=== PATIENT | female | born 1960 | race Caucasian/White ===

== ENCOUNTER 2021-04-29 08:59 | Emergency (ER) | payer BC, SELFPAY ==
[2021-04-29 08:59] VITALS: BP 153/93; PULSE 81; RESP 18; TEMP 37; O2SAT 97; BMI 38.9
--- NOTE | 2021-04-29 09:46 | HMH.EDUTC ---
[facility] [place] Disposition Clinical Impression: Sinusitis Qualifiers: Sinusitis location: unspecified location Chronicity: unspecified Qualified Code(s): J32.9 - Chronic sinusitis, unspecified Disposition: Home, Self-Care Condition on Discharge: Good Instructions: Sinusitis, DI for Sinusitis Additional Instructions: *Monitor Temp, Over the counter Motrin or Tylenol as directed/as needed Tylenol every 4 hours and Motrin every 6 hours (as long as your family doctor has told you that you can take it) for fever or pain. and straight to ER if unable to lower temp less than 101.0 after medication given *Warm salt water gargles may help to soothe the throat *Throat Lozenges *Warm fluids like tea with honey may help to soothe the throat *Sleep elevated *Humidifier/Vaporizer Follow up IMMEDIATELY for new or worsening symptoms or no Noticeable improvement over the next 48-72 hours. 911 for difficulty breathing or swallowing You were tested for today for COVID19 your test result should be back in the next 24-48 hours, you may check your results on the [facility] My Health Portal if you have trouble logging on you may call You was given a handout with instructions for Self Quarantine and Self isolation for while you wait on test results and what to do if they are positive If you are positive the Health Dept will be contacting you also Make sure to take your Vitamins Vit. C Vit D and Zinc if you can take them Prescriptions: Benzonatate [Benzonatate 100mg cap] 100 mg PO TID PRN #30 cap PRN Reason: Cough Transmission Status: Pending to [facility] predniSONE [Prednisone 20mg Tab] 20 mg PO BID 5 Days #10 tab Transmission Status: Pending to [facility] Azithromycin [Z-Edward 250mg Tab*] 250 mg PO UD DOSE PK #6 tab Transmission Status: Pending to [facility] Referrals: Provider,Referral, [Primary Care Provider] - Medical Decision Making - Kiel Inquiry Pt receiving controlled substance: No Kiel was queried for this patient: No Vital Signs: 04/29/21 08:59 Temperature 98.6 F Temperature Source Oral Pulse Rate [Left Radial] 81 Respiratory Rate 18 Blood Pressure [Right Arm] 153/93 H Blood Pressure Mean [Right Arm] 113 Blood Pressure Source [Right Arm] Automatic Cuff Blood Pressure Position [Right Arm] Sitting 02 Sat by Pulse Oximetry 97 Oxygen Delivery Method Room Air Orders (Tests/Meds): ORDERS Category Date Time Status Covid-19 Nasal PCR ([facility]) Routine Lab 04/29/21 09:24 Ordered Medical Decision Narrative: Patient state that she has taken azithromycin and prednisone [facility] [place] HPI - General Stated complaint: sore throat, sinus pressure Time Seen by Provider: 04/29/21 09:05 Mode of Arrival: Ambulatory Source of Information: Patient Limitations: No Limitations Description of Symptoms (Recalled from Triage Doc. by RN): c/o congestion, sinus pressure and severe cough since Wednesday HEENT Symptoms (Recalled from RN notes): Yes Resp Symptoms (Recalled from RN notes): No Skin Symptoms (Recalled from RN notes): No MS Symptoms (Recalled from RN notes): No Functional Status (Recalled from RN notes): na - History of Present Illness Provider Complaint: Patient states that she has been having sinus congestion and pressure for well over week that has not improved States that when she tries to lay down at night she can feel the drianage in the back of her throat and makes her cough States that it has continued and not cleared with OTC medication so she came in - Related Data Home Medications Medication Instructions Recorded Confirmed Levothyroxine Sodium [Synthroid 150 mcg PO DAILY 03/15/18 03/15/18 150mcg (0.15mg) tablet] Triamterene/Hydrochlorothiazid 1 each PO DAILY 03/15/18 03/15/18 [Triamterene-Hctz 50-25 mg Cap] Previous Rx's Medication Instructions Recorded Azithromycin [Z-Edward 250mg Tab*] 250 mg PO UD DOSE PK #6 tab 04/29/21 Benzonatate [Benzonatate 100mg 100 mg PO
[2021-04-29 10:04] VITALS: BP 153/93; PULSE 81; RESP 18; TEMP 37; O2SAT 97
== END 2021-04-29 10:05 | disposition home or self-care (01) ==
PROVIDERS: Emergency Provider Nurse Practitioner
DX: J32.9 Chronic sinusitis, unspecified (principal); Z20.822 Contact with and (suspected) exposure to COVID-19; I10 Essential (primary) hypertension; Z88.0 Allergy status to penicillin; Z79.899 Other long term (current) drug therapy
CPT/HCPCS: 99202; C9803; G0463; U0003; U0005

== ENCOUNTER 2021-08-08 09:00 | Emergency (ER) | payer BC, SELFPAY ==
[2021-08-08 09:00] VITALS: BP 113/68; PULSE 84; RESP 16; TEMP 36.8; O2SAT 97; BMI 39.3
--- NOTE | 2021-08-08 09:30 | HMH.EDUTC ---
[facility] [place] Disposition Clinical Impression: Bronchitis Sinusitis Qualifiers: Sinusitis location: other Chronicity: unspecified Qualified Code(s): J32.9 - Chronic sinusitis, unspecified Disposition: Home, Self-Care Condition on Discharge: Good Instructions: Sinusitis, Acute Bronchitis, DI for Sinusitis Additional Instructions: ? Start antibiotic today. Be sure to complete entire prescription even if feeling better ? Monitor temp. Tylenol every 4 hours as needed and / or ibuprofen every 6 hours as needed ( As long as your primary care physician has told you that it ok to take both. For fever/aches/pains ER if no less than 101 despite Tylenol or Motrin ? Humidifier/vaporizer or hot steamy shower *Tessalon Perles will not cause drowsiness but use at bedtime to help stop cough so that you may get some rest. *Start steroid today. Helps with inflammation therefore, cough and wheezing. Follow directions on the package. Reviewed side effects. Patient reports taking them before. Follow up IMMEDIATELY for new or worsening of symptoms OR no noticeable improvement over the next 48-72 hours. 911 immediately for any life threatening symptoms such as chest pain or difficulty breathing Prescriptions: Benzonatate [Benzonatate 100mg cap] 100 mg PO Q8HP PRN #15 cap PRN Reason: Cough Transmission Status: [facility] predniSONE [Prednisone 20mg Tab] 20 mg PO BID 5 Days #10 tab Transmission Status: [facility] Azithromycin [Z-Edward 250mg Tab] 250 mg PO DIRECTED #6 tab Transmission Status: Pending to [facility] Referrals: Provider,Referral, [Primary Care Provider] - As needed Time of Disposition: 09:40 Medical Decision Making - Kiel Inquiry Pt receiving controlled substance: No Kiel was queried for this patient: No Vital Signs: 08/08/21 09:00 Temperature 98.2 F Temperature Source Oral Pulse Rate [Right Brachial] 84 Respiratory Rate 16 Blood Pressure [Right Arm] 113/68 Blood Pressure Mean [Right Arm] 83 Blood Pressure Source [Right Arm] Automatic Cuff Blood Pressure Position [Right Arm] Sitting 02 Sat by Pulse Oximetry 97 Oxygen Delivery Method Room Air [facility] [place] HPI - General Stated complaint: chest congestion Time Seen by Provider: 08/08/21 09:30 Mode of Arrival: Ambulatory Source of Information: Patient Limitations: No Limitations Description of Symptoms (Recalled from Triage Doc. by RN): PATIENT C/O CONGESTION, SORE THROAT, AND PRODUCTIVE COUGH WITH GREEN SPUTUM X 3 DAYS HEENT Symptoms (Recalled from RN notes): Yes Resp Symptoms (Recalled from RN notes): Yes Skin Symptoms (Recalled from RN notes): No MS Symptoms (Recalled from RN notes): No Functional Status (Recalled from RN notes): WNL - History of Present Illness Provider Complaint: Pateint states that she she has been having sinus pain and pressure for well over a week now States that she feels like it is trying to move into her chest area States that she is having drianage in the back of her throat and at times she is able to cough up some greenish colored mucous State that she wanted to come in and get checked before it moved into her lungs - Related Data Home Medications Medication Instructions Recorded Confirmed Levothyroxine Sodium [Synthroid 150 mcg PO DAILY 03/15/18 08/08/21 150mcg (0.15mg) tablet] Triamterene/Hydrochlorothiazid 1 each PO DAILY 03/15/18 08/08/21 [Triamterene-Hctz 50-25 mg Cap] Previous Rx's Medication Instructions Recorded Azithromycin [Z-Edward 250mg Tab] 250 mg PO DIRECTED #6 tab 08/08/21 Benzonatate [Benzonatate 100mg 100 mg PO Q8HP PRN #15 cap 08/08/21 cap] predniSONE [Prednisone 20mg 20 mg PO BID 5 Days #10 tab 08/08/21 Tab] Allergies Allergy/AdvReac Type Severity Reaction Status Date / Time Penicillins Allergy Verified 03/15/18 18:57 - Worker's Comp Is this a Worker's Comp case?: No [facility] History - Hepatitis A Screen
[2021-08-08 09:44] VITALS: BP 113/68; PULSE 84; RESP 16; TEMP 36.8; O2SAT 97
== END 2021-08-08 09:50 | disposition home or self-care (01) ==
PROVIDERS: Emergency Provider Nurse Practitioner
DX: J20.9 Acute bronchitis, unspecified (principal); J32.9 Chronic sinusitis, unspecified; I10 Essential (primary) hypertension; Z88.0 Allergy status to penicillin
CPT/HCPCS: 99203; G0463

== ENCOUNTER 2022-01-19 10:01 | Emergency (ER) | payer BC, SELFPAY ==
[2022-01-19 10:15] VITALS: BP 131/76; PULSE 81; RESP 21; TEMP 36.7; O2SAT 97; BMI 37.2
--- NOTE | 2022-01-19 10:31 | HMH.EDUTC ---
[facility] [place] Disposition Clinical Impression: Sinusitis Qualifiers: Sinusitis location: unspecified location Chronicity: unspecified Qualified Code(s): J32.9 - Chronic sinusitis, unspecified Disposition: Home, Self-Care Condition on Discharge: Good Instructions: Sinusitis, DI for Sinusitis Additional Instructions: *Monitor Temp, Over the counter Motrin or Tylenol as directed/as needed Tylenol every 4 hours and Motrin every 6 hours (as long as your family doctor has told you that you can take it) for fever or pain. and straight to ER if unable to lower temp less than 101.0 after medication given *Warm salt water gargles may help to soothe the throat *Throat Lozenges *Warm fluids like tea with honey may help to soothe the throat *Sleep elevated *Humidifier/Vaporizer Take medication as prescribed Follow up IMMEDIATELY for new or worsening symptoms or no Noticeable improvement over the next 48-72 hours. 911 for difficulty breathing or swallowing Prescriptions: Benzonatate [Benzonatate 100mg cap] 100 mg PO Q8HP PRN #30 cap PRN Reason: Cough Transmission Status: [facility] predniSONE [Prednisone 20mg Tab] 20 mg PO BID #10 tab [facility]: [facility] Azithromycin [Z-Edward 250mg Tab] 250 mg PO DIRECTED #6 tab Transmission Status: Pending to [facility] Referrals: Sallie Bahena [Primary Care Provider] - As needed Time of Disposition: 10:42 Medical Decision Making - Kiel Inquiry Pt receiving controlled substance: No Kiel was queried for this patient: No Vital Signs: 01/19/22 10:15 Temperature 98.1 F Temperature Source Oral Pulse Rate [Right Brachial] 81 Respiratory Rate 21 Blood Pressure [Right Arm] 131/76 Blood Pressure Mean [Right Arm] 94 Blood Pressure Source [Right Arm] Automatic Cuff Blood Pressure Position [Right Arm] Sitting 02 Sat by Pulse Oximetry 97 Oxygen Delivery Method Room Air Medical Decision Narrative: Patient states that she has taken azithromycin and Prednisone in the past without complications or reactions [facility] [place] HPI - General Stated complaint: head congestion Time Seen by Provider: 01/19/22 10:31 Mode of Arrival: Ambulatory Source of Information: Patient Limitations: No Limitations Description of Symptoms (Recalled from Triage Doc. by RN): PATIENT C/O PRODUCTIVE COUGH AND CHEST/HEAD CONGESTION X 4 DAYS HEENT Symptoms (Recalled from RN notes): Yes Resp Symptoms (Recalled from RN notes): Yes Skin Symptoms (Recalled from RN notes): No MS Symptoms (Recalled from RN notes): No Functional Status (Recalled from RN notes): WNL - History of Present Illness Provider Complaint: Patient states that she has been having sinus congestion and pressure and feels like it is trying to move into her chest at time she is coughing up some green mucous States that she wanted to come in and get checked before she ended up with Pneumonia - Related Data Home Medications Medication Instructions Recorded Confirmed Levothyroxine Sodium [Synthroid 150 mcg PO DAILY 01/19/22 01/19/22 150mcg (0.15mg) tablet] Previous Rx's Medication Instructions Recorded Azithromycin [Z-Edward 250mg Tab] 250 mg PO DIRECTED #6 tab 01/19/22 Benzonatate [Benzonatate 100mg 100 mg PO Q8HP PRN #30 cap 01/19/22 cap] predniSONE [Prednisone 20mg 20 mg PO BID #10 tab 01/19/22 Tab] Allergies Allergy/AdvReac Type Severity Reaction Status Date / Time Penicillins Allergy Verified 03/15/18 18:57 - Worker's Comp Is this a Worker's Comp case?: No [facility] History - Hepatitis A Screen Attestation statement:: This patient has been screened for Hepatitis A risk factors. I have reviewed the patient's past medical history: Yes Medical History: Reports:: Cancer (SKIN), Hypertension, Migraine Other Medical History: Reports: Thyroid Disease Laterality Cases: Bilateral: Tonsillectomy Other Surgeries: Yes: Cholecystectomy
[2022-01-19 10:51] VITALS: BP 131/76; PULSE 81; RESP 21; TEMP 36.7; O2SAT 97
== END 2022-01-19 10:53 | disposition home or self-care (01) ==
PROVIDERS: Emergency Provider Nurse Practitioner; PCP Internal Medicine
DX: J32.9 Chronic sinusitis, unspecified (principal)
CPT/HCPCS: 99212; G0463

== ENCOUNTER 2022-03-25 08:00 | Emergency (ER) | payer BC, SELFPAY ==
[2022-03-25 08:13] VITALS: BP 138/71; PULSE 82; RESP 17; TEMP 37.3; O2SAT 98; BMI 37.8
--- NOTE | 2022-03-25 08:25 | EXP.UTC ---
Discharge Plan Disposition Patient Disposition: Home, Self-Care Condition: Good Prescriptions Prescriptions: New sulfamethoxazole-trimethoprim [Bactrim DS] 800-160 mg tablet 1 tab PO BID 7 Days Qty: 14 0RF phenazopyridine [Pyridium] 200 mg tablet 200 mg PO Q8H 2 Days Qty: 6 0RF No Action levothyroxine 150 MCG tablet 150 mcg PO DAILY triamterene-hydrochlorothiazid 37.5-25 mg tablet 1 tab PO DAILY Referrals Follow up/Referrals: Sallie Bahena [Primary Care Provider] - See instructions Activity Restrictions/Add. Instructions Additional Instructions/Restrictions: *Increase fluids. Water not Soda or Tea *Start antibiotic immediately and be sure to take as ordered for the FULL length of time although you should start to see improvement over the next 48 hours *Pyridium as needed Remember this medication will turn your urine . This is normal but it will stain what ever it gets on *You should not use Pyridium for more than 48 hours. If so , follow up with your primary physician to review urine culture and ensure that antibiotic is adequate for infection *Be SURE to follow up anytime for new or worsening symptoms with your family doctor. AND in 48 hours for urine culture results with your family doctor, if you do not have a doctor then you may call back to the [facility] for urine culture results and further treatment. We do recommend that you choose and establish care with a Primary Care Physician. ?AND follow up with them ?in 10-14 days to repeat UA to ensure infection is resolved and blood no longer present *Be sure to let your PCP know that we sent urine cultures from the [facility] so they can follow up to ensure that you area the on the correct antibiotic Call your doctor office and make appointment for 48 hours (2 days from today) ?to follow up and get the results of your urine culture and further treatment Clinical Impressions Clinical Impression: UTI (urinary tract infection) Instructions Patient Instructions: DI for Urinary Tract Infection (UTI), Urinary Tract Infection, Trimethoprim/Sulfamethoxazole (Alternative Therapy) Discharge ED Provider: Carolyn Vanessa [facility] [place] HPI General Stated complaint: Possible UTI Mode of Arrival: Ambulatory Source of Information: Patient Limitations: No Limitations Time Seen by Provider: 03/25/22 08:26 Description of Symptoms (Recalled from Triage Doc. by RN): pt comes in with c/o urgency, frequency and pressure with urination. symptoms began yesterday. pt states that 03/21, she had issue with high bp, she believes she may have been getting sick then. HEENT Symptoms (Recalled from RN notes): No Resp Symptoms (Recalled from RN notes): No Skin Symptoms (Recalled from RN notes): No MS Symptoms (Recalled from RN notes): No Functional Status (Recalled from RN notes): n/a History of Present Illness Provider Complaint: Patient states that yesterday she started having burning with urination and feeling of urgency and frequency States that she had a left over pyridium so she took it but still having symptoms and she is pretty sure she has a UTI so she came in to get it checked out Related Data Home Medications Medication Instructions Recorded Confirmed levothyroxine 150 mcg tablet 150 mcg PO DAILY THYROID 01/19/22 03/25/22 triamterene 37.5 1 tab PO DAILY High blood pressure 03/25/22 03/25/22 mg-hydrochlorothiazide 25 mg tablet Previous Rx's Medication Instructions Recorded phenazopyridine 200 mg tablet 200 mg PO Q8H pain 2 days #6 tabs 03/25/22 (Pyridium) sulfamethoxazole 800 1 tab PO BID 7 days #14 tabs 03/25/22 mg-trimethoprim 160 mg tablet (Bactrim DS) Allergies Allergy/AdvReac Type Severity Reaction Status Date / Time Penicillins Allergy Verified 03/25/22 08:16 Worker's Comp Is this a Worker's Comp case?: No PFSH PFSH Social History Smoking Status: Unknown if ever smoked alcohol intake: never halle
[2022-03-25 08:29] LABS: Apearance,Urine Cloudy (Clear); Color,Urine Red (Yellow)
[2022-03-25 08:30] LABS: Bilirubin,Urine 2+ (Negative); Blood, Urine 3+ (Negative); Glucose,Urine (UA) 250 (Negative); Ketones,Urine 15 (Negative); Protein,Urine 2+ (Negative); UTC Leukocyte Esterase,Urine 3+ (Negative); Urobilinogen,Urine >=8 EU/dl (0.2)
[2022-03-25 08:31] LABS: UTC Nitrate,Urine Positive (Negative)
[2022-03-25 08:41] VITALS: BP 138/71; PULSE 82; RESP 17; TEMP 37.3
== END 2022-03-25 08:50 | disposition home or self-care (01) ==
PROVIDERS: Emergency Provider Nurse Practitioner; PCP Internal Medicine
DX: N39.0 Urinary tract infection, site not specified (principal); I10 Essential (primary) hypertension; E03.9 Hypothyroidism, unspecified; Z79.899 Other long term (current) drug therapy; Z88.0 Allergy status to penicillin
CPT/HCPCS: 81003; 87086; 87088; 87186; 99213; G0463

== ENCOUNTER 2022-07-06 07:59 | Emergency (ER) | payer BC, SELFPAY ==
[2022-07-06 08:10] VITALS: BP 134/73; PULSE 80; RESP 23; TEMP 36.7; O2SAT 96; BMI 37.9
--- NOTE | 2022-07-06 08:24 | EXP.UTC ---
Discharge Plan Disposition Patient Disposition: Home, Self-Care Condition: Good Prescriptions Prescriptions: New benzonatate 100 mg capsule 100 mg PO TID PRN (Reason: cough) Qty: 30 0RF albuterol sulfate [Proventil HFA] 90 mcg/actuation HFA aerosol inhaler 1 inh inhalation Q6H PRN (Reason: shortness of breath or wheezing) Qty: 8.5 0RF prednisone [prednisone] 20 mg tablet 20 mg PO BID 5 Days Qty: 10 0RF azithromycin [Zithromax Z-Edward] 250 mg tablet See Rx Instructions .ROUTE .COMPLEX 5 Days Qty: 6 0RF Rx Instructions: For 250 mg dose pack: take 500 mg today (day 1), then 250 mg for 4 days (days 2-5) No Action levothyroxine 150 MCG tablet 150 mcg PO DAILY triamterene-hydrochlorothiazid 37.5-25 mg tablet 1 tab PO DAILY sulfamethoxazole-trimethoprim [Bactrim DS] 800-160 mg tablet 1 tab PO BID 7 Days Qty: 14 0RF phenazopyridine [Pyridium] 200 mg tablet 200 mg PO Q8H 2 Days Qty: 6 0RF Referrals Follow up/Referrals: Provider,Referral, MD [Primary Care Provider] - See instructions Activity Restrictions/Add. Instructions Additional Instructions/Restrictions: Start antibiotic today. Be sure to complete entire prescription even if feeling better Monitor temp. Tylenol every 4 hours as needed and / or ibuprofen every 6 hours as needed ( As long as your primary care physician has told you that it ok to take both. For fever/aches/pains ER if no less than 101 despite Tylenol or Motrin Humidifier/vaporizer or hot steamy shower Inhaler every 4-6 hours as needed like we discussed. If unsure how to use it, ask pharmacist to demonstrate how. Should help open airways and improve cough, wheezing, and shortness of breath *Tessalon Perles will not cause drowsiness but use at bedtime to help stop cough so that you may get some rest. *Start steroid today. Helps with inflammation therefore, cough and wheezing. Follow directions on the package. Reviewed side effects. Patient reports taking them before. Follow up IMMEDIATELY for new or worsening of symptoms OR no noticeable improvement over the next 48-72 hours. 911 immediately for any life threatening symptoms such as chest pain or difficulty breathing Clinical Impressions Clinical Impression: Sinusitis Instructions Patient Instructions: Sinusitis, DI for Sinusitis Discharge ED Provider: Carolyn Vanessa [facility] [place] General Stated complaint: Cough Mode of Arrival: Ambulatory Source of Information: Patient Limitations: No Limitations Time Seen by Provider: 07/06/22 08:24 Description of Symptoms (Recalled from Triage Doc. by RN): PATIENT C/O DRY COUGH, CONGESTION, AND WHEEZING ON EXPIRATION SINCE WEDNESDAY NIGHT HEENT Symptoms (Recalled from RN notes): Yes Resp Symptoms (Recalled from RN notes): Yes Skin Symptoms (Recalled from RN notes): No MS Symptoms (Recalled from RN notes): No Functional Status (Recalled from RN notes): WNL History of Present Illness Provider Complaint: Patient states that she has been having dry cough, sinus congestion and pressure, wheezing on and off with expiration worse when she lays down States that she isnt coughing anything up but feels like it does when she is getting bronchitis States that cough and wheezing like feeling worse when she lays down Related Data Home Medications Medication Instructions Recorded Confirmed levothyroxine 150 mcg tablet 150 mcg PO DAILY THYROID 01/19/22 03/25/22 triamterene 37.5 1 tab PO DAILY High blood pressure 03/25/22 03/25/22 mg-hydrochlorothiazide 25 mg tablet Previous Rx's Medication Instructions Recorded phenazopyridine 200 mg tablet 200 mg PO Q8H pain 2 days #6 tabs 03/25/22 (Pyridium) sulfamethoxazole 800 1 tab PO BID 7 days #14 tabs 03/25/22 mg-trimethoprim 160 mg tablet (Bactrim DS) albuterol sulfate 90 mcg/actuation 1 inh inhalation Q6H PRN shortness 07/06/22 aerosol inhaler (Proventil HFA) of breath or wheezing
[2022-07-06 08:37] VITALS: BP 134/73; PULSE 80; RESP 23; TEMP 36.7; O2SAT 96
== END 2022-07-06 08:40 | disposition home or self-care (01) ==
PROVIDERS: Emergency Provider Nurse Practitioner
DX: J32.9 Chronic sinusitis, unspecified (principal)
CPT/HCPCS: 99212; G0463

== ENCOUNTER 2022-10-26 08:00 | Emergency (ER) | payer BC, SELFPAY ==
[2022-10-26 08:05] VITALS: BP 142/80; PULSE 79; RESP 21; TEMP 37.1; O2SAT 95; BMI 36.9
--- NOTE | 2022-10-26 08:25 | EXP.UTC ---
Discharge Plan Disposition Patient Disposition: Home, Self-Care Condition: Good Prescriptions Prescriptions: New benzonatate 100 mg capsule 100 mg PO TID PRN (Reason: cough) Qty: 30 1RF prednisone [prednisone] 20 mg tablet 20 mg PO BID 5 Days Qty: 10 0RF azithromycin [Zithromax Z-Edward] 250 mg tablet See Rx Instructions .ROUTE .COMPLEX 5 Days Qty: 6 0RF Rx Instructions: For 250 mg dose pack: take 500 mg today (day 1), then 250 mg for 4 days (days 2-5) albuterol sulfate [Proventil HFA] 90 mcg/actuation HFA aerosol inhaler 1 - 2 inh inhalation Q6H PRN (Reason: shortness of breath or wheezing) Qty: 8.5 0RF fluticasone propionate [Flonase Allergy Relief] 50 mcg/actuation spray,suspension 1 - 2 spray intranasal DAILY Qty: 16 0RF Rx Instructions: administer into each nostril No Action levothyroxine [Synthroid] 150 mcg tablet 150 mcg PO DAILY cholecalciferol (vitamin D3) [Vitamin D3] 125 mcg (5,000 unit) Tablet 125 mcg PO DAILY triamterene-hydrochlorothiazid 37.5-25 mg tablet 1 tab PO DAILY Referrals Follow up/Referrals: Provider,Referral, MD [Primary Care Provider] - See instructions Activity Restrictions/Add. Instructions Additional Instructions/Restrictions: Start antibiotic today. Be sure to complete entire prescription even if feeling better Monitor temp. Tylenol every 4 hours as needed and / or ibuprofen every 6 hours as needed ( As long as your primary care physician has told you that it ok to take both. For fever/aches/pains ER if no less than 101 despite Tylenol or Motrin Humidifier/vaporizer or hot steamy shower Inhaler every 4-6 hours as needed like we discussed. If unsure how to use it, ask pharmacist to demonstrate how. Should help open airways and improve cough, wheezing, and shortness of breath *Tessalon Perles will not cause drowsiness but use at bedtime to help stop cough so that you may get some rest. *Start steroid today. Helps with inflammation therefore, cough and wheezing. Follow directions on the package. Reviewed side effects. Patient reports taking them before. Follow up IMMEDIATELY for new or worsening of symptoms OR no noticeable improvement over the next 48-72 hours. 911 immediately for any life threatening symptoms such as chest pain or difficulty breathing Clinical Impressions Clinical Impression: Sinusitis, Bronchitis Instructions Patient Instructions: Sinusitis, Acute Bronchitis, DI for Sinusitis, Sinus Headache Discharge ED Provider: Carolyn Vanessa [facility] [place] General Stated complaint: Congestion, Cough Mode of Arrival: Ambulatory Source of Information: Patient Limitations: No Limitations Time Seen by Provider: 10/26/22 08:25 Description of Symptoms (Recalled from Triage Doc. by RN): PATIENT C/O PRODUCTIVE COUGH THAT IS WORSE AT NIGHT, SINUS DRAINAGE, AND CONGESTION THAT STARTED WEDNESDAY HEENT Symptoms (Recalled from RN notes): Yes Resp Symptoms (Recalled from RN notes): Yes Skin Symptoms (Recalled from RN notes): No MS Symptoms (Recalled from RN notes): No Functional Status (Recalled from RN notes): WNL History of Present Illness Provider Complaint: Patient states that she has been having sinus pain and pressure, drainage in the back of her throat and at times she is able to cough up some mucous States that it was getting worse and kept her up most of the night last night so this morning she came in to get checked Related Data Home Medications Medication Instructions Recorded Confirmed triamterene 37.5 1 tab PO DAILY Hypertension 03/25/22 10/26/22 mg-hydrochlorothiazide 25 mg tablet cholecalciferol (vitamin D3) 125 125 mcg PO DAILY Supplement 10/26/22 10/26/22 mcg (5,000 unit) tablet (Vitamin D3) levothyroxine 150 mcg tablet 150 mcg PO DAILY THYROID 10/26/22 10/26/22 (Synthroid) Previous Rx's Medication Instructions Recorded albuterol sulfate 9
[2022-10-26 08:36] VITALS: BP 142/80; PULSE 79; RESP 21; TEMP 37.1; O2SAT 95
== END 2022-10-26 08:38 | disposition home or self-care (01) ==
PROVIDERS: Emergency Provider Nurse Practitioner
DX: J20.9 Acute bronchitis, unspecified (principal); J01.90 Acute sinusitis, unspecified; R51.9 Headache, unspecified; I10 Essential (primary) hypertension; E07.9 Disorder of thyroid, unspecified
CPT/HCPCS: 99212; 99214; G0463

== ENCOUNTER 2022-11-01 08:00 | Emergency (ER) | payer BC, SELFPAY ==
[2022-11-01 08:05] VITALS: BP 133/78; PULSE 79; RESP 18; TEMP 36.8; O2SAT 98; BMI 37.7
--- NOTE | 2022-11-01 08:22 | EXP.UTC ---
Discharge Plan Disposition Patient Disposition: Home, Self-Care Condition: Good Prescriptions Prescriptions: New levofloxacin 750 mg tablet 750 mg PO DAILY 7 Days Qty: 7 0RF Rx Instructions: separate from oral iron by at least 4 hours guaifenesin [Mucinex] 600 mg tablet extended release 12hr 1,200 mg PO BID PRN (Reason: cough) Qty: 20 0RF No Action levothyroxine [Synthroid] 150 mcg tablet 150 mcg PO DAILY cholecalciferol (vitamin D3) [Vitamin D3] 125 mcg (5,000 unit) Tablet 125 mcg PO DAILY benzonatate 100 mg capsule 100 mg PO TID PRN (Reason: cough) Qty: 30 1RF prednisone [prednisone] 20 mg tablet 20 mg PO BID 5 Days Qty: 10 0RF azithromycin [Zithromax Z-Edward] 250 mg tablet See Rx Instructions .ROUTE .COMPLEX 5 Days Qty: 6 0RF Rx Instructions: For 250 mg dose pack: take 500 mg today (day 1), then 250 mg for 4 days (days 2-5) albuterol sulfate [Proventil HFA] 90 mcg/actuation HFA aerosol inhaler 1 - 2 inh inhalation Q6H PRN (Reason: shortness of breath or wheezing) Qty: 8.5 0RF fluticasone propionate [Flonase Allergy Relief] 50 mcg/actuation spray,suspension 1 - 2 spray intranasal DAILY Qty: 16 0RF Rx Instructions: administer into each nostril triamterene-hydrochlorothiazid 37.5-25 mg tablet 1 tab PO DAILY Referrals Follow up/Referrals: Sallie Bahena [Primary Care Provider] - See instructions Activity Restrictions/Add. Instructions Additional Instructions/Restrictions: Make sure to seperate oral Iron and Levaquin by at least 4 hours Start antibiotic today. Be sure to complete entire prescription even if feeling better Monitor temp. Tylenol every 4 hours as needed and / or ibuprofen every 6 hours as needed ( As long as your primary care physician has told you that it ok to take both. For fever/aches/pains ER if no less than 101 despite Tylenol or Motrin Humidifier/vaporizer or hot steamy shower Inhaler every 4-6 hours as needed like we discussed. If unsure how to use it, ask pharmacist to demonstrate how. Should help open airways and improve cough, wheezing, and shortness of breath Mucinex during the day for your cough and cough suppressant only at night. Be sure to drink lots of water. Follow up IMMEDIATELY for new or worsening of symptoms OR no noticeable improvement over the next 48-72 hours. 911 immediately for any life threatening symptoms such as chest pain or difficulty breathing Clinical Impressions Clinical Impression: Bronchitis Sinusitis Qualifiers: Sinusitis location: unspecified location Chronicity: unspecified Qualified Code(s): J32.9 - Chronic sinusitis, unspecified Instructions Patient Instructions: Acute Bronchitis, DI for Sinusitis Discharge ED Provider: Carolyn Vanessa [facility] [place] HPI General Stated complaint: Congestion cough headache Mode of Arrival: Ambulatory Source of Information: Patient Limitations: No Limitations Time Seen by Provider: 11/01/22 08:26 Description of Symptoms (Recalled from Triage Doc. by RN): PATIENT C/O CONGESTION AND PRODUCTIVE COUGH X 1 WEEK HEENT Symptoms (Recalled from RN notes): No Resp Symptoms (Recalled from RN notes): Yes Skin Symptoms (Recalled from RN notes): No MS Symptoms (Recalled from RN notes): No Functional Status (Recalled from RN notes): WNL History of Present Illness Provider Complaint: Patient states that she started last week with sinus congestion and pressure and finished her antibiotics on Wednesday and it came back and was worse States that she is coughing up dark yellow mucous and same is coming from her nose States that she has been using her albuterol but hasnt helped much and not able to cough much up Related Data Home Medications Medication Instructions Recorded Confirmed triamterene 37.5 1 tab PO DAILY Hypertension 03/25/22 10/26/22 mg-hydrochlorothiazide 25 mg tablet cholecalciferol (vitamin D3) 125 125 mcg PO
[2022-11-01 08:23] VITALS: BP 133/78; PULSE 79; RESP 18; TEMP 36.8; O2SAT 98
== END 2022-11-01 09:00 | disposition home or self-care (01) ==
PROVIDERS: Emergency Provider Nurse Practitioner; PCP Internal Medicine
DX: J20.9 Acute bronchitis, unspecified (principal); J01.90 Acute sinusitis, unspecified; I10 Essential (primary) hypertension; E03.9 Hypothyroidism, unspecified
CPT/HCPCS: 96372; 99212; 99214; G0463

== ENCOUNTER 2023-08-28 08:13 | Emergency (ER) | payer MEDICARE, BC, SELFPAY ==
[2023-08-28 09:00] VITALS: BP 106/80; PULSE 72; RESP 18; TEMP 36.8; O2SAT 95; BMI 35.6
--- NOTE | 2023-08-28 09:38 | EXP.UTC ---
Discharge Plan Disposition Patient Disposition: Home, Self-Care Condition: Good Prescriptions Prescriptions: New doxycycline hyclate 100 mg capsule 100 mg PO BID Qty: 20 0RF prednisone 20 mg tablet 20 mg PO BID Qty: 10 0RF No Action levothyroxine [Synthroid] 150 mcg tablet 150 mcg PO DAILY cholecalciferol (vitamin D3) [Vitamin D3] 125 mcg (5,000 unit) Tablet 125 mcg PO DAILY benzonatate 100 mg capsule 100 mg PO TID PRN (Reason: cough) Qty: 30 1RF prednisone [prednisone] 20 mg tablet 20 mg PO BID 5 Days Qty: 10 0RF azithromycin [Zithromax Z-Edward] 250 mg tablet See Rx Instructions .ROUTE .COMPLEX 5 Days Qty: 6 0RF Rx Instructions: For 250 mg dose pack: take 500 mg today (day 1), then 250 mg for 4 days (days 2-5) albuterol sulfate [Proventil HFA] 90 mcg/actuation HFA aerosol inhaler 1 - 2 inh inhalation Q6H PRN (Reason: shortness of breath or wheezing) Qty: 8.5 0RF fluticasone propionate [Flonase Allergy Relief] 50 mcg/actuation spray,suspension 1 - 2 spray intranasal DAILY Qty: 16 0RF Rx Instructions: administer into each nostril levofloxacin 750 mg tablet 750 mg PO DAILY 7 Days Qty: 7 0RF Rx Instructions: separate from oral iron by at least 4 hours guaifenesin [Mucinex] 600 mg tablet extended release 12hr 1,200 mg PO BID PRN (Reason: cough) Qty: 20 0RF triamterene-hydrochlorothiazid 37.5-25 mg tablet 1 tab PO DAILY Referrals Follow up/Referrals: Sallie Bahena [Primary Care Provider] - See instructions Activity Restrictions/Add. Instructions Additional Instructions/Restrictions: Start antibiotic today. Be sure to complete entire prescription even if feeling better Tylenol and ibuprofen as needed for pain or fever Humidifier/vaporizer/hot steamy shower Follow-up with primary care Follow-up immediately in the ER of the [facility] for new or worsening symptoms or no noticeable improvement over the next 48-72 hours. Stop smoking Inhaler every 4-6 hours as needed. Should help open airways improved cough, wheezing, shortness of breath Start steroids today. Helps with inflammation therefore coughing and wheezing. Follow directions on package. Clinical Impressions Clinical Impression: Sinusitis, COPD exacerbation Instructions Patient Instructions: DI for Sinusitis, DI for Chronic Obstructive Pulmonary Disease Discharge ED Provider: Shima ([facility] [place] General Stated complaint: cough, congestion Mode of Arrival: Ambulatory Source of Information: Patient Limitations: No Limitations Time Seen by Provider: 08/28/23 09:38 Description of Symptoms (Recalled from Triage Doc. by RN): Pt's symptoms are productive cough, and congestion. HEENT Symptoms (Recalled from RN notes): Yes Resp Symptoms (Recalled from RN notes): No Skin Symptoms (Recalled from RN notes): No MS Symptoms (Recalled from RN notes): No Functional Status (Recalled from RN notes): n/a History of Present Illness Provider Complaint: 63 yr old female presnts for c/o productive cough,wheezing, nasal pressure and congestion. Related Data Home Medications Medication Instructions Recorded Confirmed triamterene 37.5 1 tab PO DAILY Hypertension 03/25/22 10/26/22 mg-hydrochlorothiazide 25 mg tablet cholecalciferol (vitamin D3) 125 125 mcg PO DAILY Supplement 10/26/22 10/26/22 mcg (5,000 unit) tablet (Vitamin D3) levothyroxine 150 mcg tablet 150 mcg PO DAILY THYROID 10/26/22 10/26/22 (Synthroid) Previous Rx's Medication Instructions Recorded albuterol sulfate 90 mcg/actuation 1 - 2 inh inhalation Q6H PRN 10/26/22 aerosol inhaler (Proventil HFA) shortness of breath or wheezing #8.5 grams azithromycin 250 mg tablet See Rx Instructions PO .COMPLEX 5 10/26/22 (Zithromax Z-Edward) days #6 tabs benzonatate 100 mg capsule 100 mg PO TID PRN cough #30 caps 10/26/22 fluticasone propionate 50 1 - 2 spray intranasal DAILY #16 10/26/22 mcg/actuation nasal grams spray,suspension (Flonase Allergy Relief) prednisone 20 mg tablet 20 mg PO BID 5 days #10 tabs 10/26/22 guaifenesin 600 mg tablet, 1,200 mg (2 x 600 mg) PO BID PRN 11/01/22 extended release 12 hr (Mucinex) cough #20 tabs levofloxacin 750 mg tablet 750 mg PO DAILY 7 days #7 tabs 11/01/22 doxycycline hyclate 100 mg capsule 100 mg PO BID #20 caps 08/28/23 prednisone 20 mg tablet 20 mg PO BID #10 tabs 08/28/23 Allergies Allergy/AdvReac Type Severity Reaction Status Date / Time Penicillins Allergy Verified 03/25/22 08:16 Worker's Comp Is this a Worker's Comp case?: No [facility] Disclaimer: The information contained in this section may have been updated after the patient was seen, as this information can be updated by other users. Medical History , [employer]) Thyroid disease Skin cancer History of anemia Hypertension Surgical History , [employer]) History of tonsillectomy History of hysterectomy History of section History of cholecystectomy Social History , [employer]) Smoking Status: Unknown if ever smoked alcohol intake: never current occupational status: other Travel in the last 8 weeks: None ROS Obtained: Yes All systems reviewed & no additional complaints except as documented Constitutional Constitutional: Reports system reviewed and no additional complaints, except as documented and Reports as per HPI Eyes Eyes: Reports system reviewed and no additional complaints, except as documented and Reports as per HPI ENT Ears, Nose, Mouth, and Throat: Reports system reviewed and no additional complaints, except as documented, Reports as per HPI, Reports nasal congestion, Reports nasal discharge, Reports sinus pain and Reports sinus pressure Cardiovascular Cardiovascular: Reports system reviewed and no additional complaints, except as documented and Reports as per HPI Respiratory Respiratory: Reports system reviewed and no additional complaints, except as documented, Reports as per HPI, Reports change in phlegm color, Reports chest congestion, Reports cough and Reports wheezing Gastrointestinal Gastrointestingal: Reports system reviewed and no additional complaints, except as documented Musculoskeletal Musculoskeletal: Reports system reviewed and no additional complaints, except as documented Integumentary/Breasts Skin/Breast: Reports system reviewed and no additional complaints, except as documented Neurologic Neurologic: Reports system reviewed and no additional complaints, except as documented Endocrine Endocrine: Reports system reviewed and no additional complaints, except as documented Allergic/Immunologic Allergic/Immunologic: Reports system reviewed and no additional complaints, except as documented and Reports wheezing Physical Exam General General appearance: alert and in no apparent distress Head Head exam: atraumatic Eye Eye exam: Present normal appearance and PERRL ENT ENT exam: Present mucous membranes moist and TM's normal bilaterally Expanded ENT Exam Nose exam: Present sinus tenderness Respiratory Respiratory exam: Present wheezes Cardiovascular Cardiovascular exam: Present regular rate and normal rhythm Neurological Exam Neurological exam: Present alert and oriented X3 Skin Skin exam: Present warm and intact Medical Decision Making Medical Records Medical records reviewed: Yes I reviewed the patient's medical records. [place] Inquiry Pt receiving controlled substance: No [place] was queried for this patient: No Vital Signs: 08/28/23 09:00 Temperature 98.2 F Temperature Source Oral Pulse Rate [Right Radial] 72 Respiratory Rate 18 Blood Pressure [Right Arm] 106/80 L Blood Pressure Mean [Right Arm] 88 Blood Pressure Source [Right Arm] Automatic Cuff Blood Pressure Position [Right Arm] Sitting 02 Sat by Pulse Oximetry 95 Oxygen Delivery Method Room Air Lab Data Lab results reviewed: Yes I reviewed the patient's lab results.
[2023-08-28 09:58] VITALS: BP 106/80; PULSE 72; RESP 18; TEMP 36.8; O2SAT 96
== END 2023-08-28 09:58 | disposition home or self-care (01) ==
PROVIDERS: Emergency Provider Nurse Practitioner Family; PCP Internal Medicine
DX: J44.1 Chronic obstructive pulmonary disease with (acute) exacerbation (principal); J01.90 Acute sinusitis, unspecified; R05.8 Other specified cough; R09.81 Nasal congestion; I10 Essential (primary) hypertension; E03.9 Hypothyroidism, unspecified
CPT/HCPCS: 99212; 99214; G0463

== ENCOUNTER 2024-10-09 08:25 | Outpatient (CLI) | payer MEDICARE, BC, SELFPAY | END 2024-10-09 23:59 | disposition home or self-care (01) | LOC: LAB.DROPOF 10-10 14:14 | PROVIDERS: PCP Nurse Practitioner; Visit Provider Nurse Practitioner | DX: R30.0 Dysuria (principal); B96.1 Klebsiella pneumoniae [K. pneumoniae] as the cause of diseases classified elsewhere | CPT/HCPCS: 87086; 87088; 87186 ==